=== PATIENT | female | born 1965 | race Caucasian/White ===

== ENCOUNTER 2017-04-07 13:32 | Inpatient (IN) ==
[2017-04-07] MEDS ORDERED: NS 1,000 ML IV ONE ×2 (13:53→15:40)
[2017-04-07] MEDS ORDERED: ONDANSETRON 4 MG/2 ML INJECTION IVP PRN ×2 (13:53→17:29)
[2017-04-07] MEDS ORDERED: MORPHINE SULFATE 2mg INJECTION IVP ONE ×2 (13:53→14:22)
[2017-04-07] MEDS: SALINE FLUSH 10ml SYRINGE IVF PRN ×3 (13:55→21:23)
--- NOTE | 2017-04-07 13:58 | Emergency Department Report ---
Chest Pain HPI - General Chief Complaint: Chest Pain Stated Complaint: cp,abdpain,backpain Time Seen by Provider: 04/07/17 13:52 Source: patient Mode of arrival: ambulatory Limitations: no limitations - History of Present Illness HPI narrative: Mrs Vail is a pleasant 51-year-old female who presents to the emergency room with fairly severe chest pain, abdominal pain that radiates into the back. She reports that her pain started last evening while sitting and drinking a beer at home. Pain was in the chest only. At that time. However, this morning, pain is more in the abdomen. She is now having nausea and vomited 1. Pain radiates into the back. She is noted to be diaphoretic, tachycardic in the 120s with elevated blood pressure on arrival. MD complaint: chest pain Occurred At: home Onset (ago): hour(s) Duration: constant Onset: during rest Severity: severe Severity scale (1-10): 9 Quality: aching Pain radiation: none Relieving factors: nothing Exacerbating factors: nothing Associated symptoms: nausea, vomiting, diaphoresis Treatments prior to arrival chest pain: none - Related Data On Oral Contraceptives: No Home Medications Medication Instructions Recorded Confirmed Levothyroxine Sodium [Synthroid] 75 mcg PO DAILY #0 11/22/09 04/07/17 Ibuprofen 400 mg PO PRN PRN 04/07/17 04/07/17 Allergies Allergy/AdvReac Type Severity Reaction Status Date / Time tetracycline AdvReac Mild NAUSEA Verified 11/22/09 15:52 doxycycline AdvReac Unknown Verified 11/22/09 15:52 Review of Systems All systems: reviewed and negative except as stated Cardiovascular: Reports: chest pain Gastrointestinal: Reports: as per HPI, abdominal pain, nausea, vomiting PFS Patient Stated Medical History Cerebrovascular Accident No Migraine Yes Angina No Cardiac Arrhythmia No Congestive Heart Failure No Myocardial Infarction No Peripheral Vascular Disease No Other Respiratory Yes: hx pleursey Diabetes Mellitus Type 1 No Diabetes Mellitus Type 2 No Gastroesophageal Reflux Yes Disease Other Musculoskeletal Yes: jaw sx Recreational Drug Use No Hypothyroidism Surgical History: Tonsillectomy. Jaw surgery Family History Updates: Diabetes - Social History Smoking status: Current every day smoker Substance use type: does not use Alcohol intake: current Housing: house Household members: significant other Social history: Primary care provider-formally Dr. Medrano Physical Exam - Limitations Limitations: no limitations - General General appearance: alert, in no apparent distress - Normal Exams: Head:: Normocephalic without trauma Eyes:: Pupils are PERRLA w/ EOMI ENMT:: No facial trauma Neck:: Full range of motion Chest/Respirations:: Clear all haskins Cardiovascular:: Regular rate and rhythm (tachycardic-120), Pulses 2+ all extremities Integumentary:: No rashes Neurological:: Patient is alert Psychiatric:: Patient exhibits, appropriate attention - Cardiovascular Cardiovascular exam: Present: tachycardia - Abdominal Exam Abdominal exam: Present: tenderness Abdominal tenderness: Present: diffuse Course Vital Signs Pulse Rate 108 H 04/07/17 14:20 Respiratory Rate 24 04/07/17 14:20 Blood Pressure 142/98 H 04/07/17 14:20 Pulse Oximetry 100 04/07/17 14:20 Temperature 98.3 F 04/09/17 07:15 Pulse Rate 85 04/09/17 07:15 Respiratory Rate 18 04/09/17 07:15 Blood Pressure 107/68 04/09/17 07:15 Pulse Oximetry 95 04/09/17 07:15 Chest Pain - MDM Narrative Medical decision making narrative: 1530- Re-examination rates pain 9/10. Appears more comfortable. Reviewed labs. Patient states she has been drinking increased alcohol lately. Will give 2nd liter of IV fluid and additional Morphine. 1630- CT results revel Acute Pancreatitis. Spoke with oncall Hospitalist Dr Hinton. Discussed plan for admission with patient. - Differential Diagnosis Likely: unstable angina pectoris, st elevation myocardial infarction, chest pain , biliary colic - Lab Data Result diagrams: 04/09/17 04:47 04/09/17 04:47 Lab Results 04/07/17 04/07/17 04/07/17 Range/Units 14:11 14:11 14:11 WBC 13.5 H (4.5-11.0) T/MM3 RBC 4.75 (4.00-5.20) M/MM3 Hgb 16.9 H (12-16) GM/DL Hct 45.8 (36-46) % MCV 96.4 (80-100) UM3 MCH 35.6 H (26-34) UUG MCHC 36.9 (31-37) GM/DL RDW Std Deviation 41.0 (36.9-50.2) FL Plt Count 217 (130-400) T/MM3 MPV 10.3 (9.4-12.4) UM3 Immature Gran % (Auto) Not performed Neut % (Auto) Not performed Lymph % (Auto) Not performed Casey % (Auto) Not performed Eos % (Auto) Not performed Baso % (Auto) Not performed Neut # (Auto) Not performed Lymph # (Auto) Not performed Casey # (Auto) Not performed Eos # (Auto) Not performed Baso # (Auto) Not performed Abs Immat Gran (auto) Not performed Neutrophils % (Manual) 87.0 H (33-66) % Lymphocytes % (Manual) 10.0 L (23-45) % Monocytes % (Manual) 3.0 (0-9.0) % Neutrophils # (Manual) 11.7 H (1.8-7.7) T/MM3 Lymphocytes # (Manual) 1.4 (1-4.8) T/MM3 Monocytes # (Manual) 0.4 (0-0.8) T/MM3 RBC Morph Comment Normal D-Dimer 497 H (0-230) NG/ML Turbidity < 20 (0-20) Sodium 139 (134-144) MEQ/L Potassium 3.8 (3.6-5) MEQ/L Chloride 104 (98-107) MEQ/L Carbon Dioxide 17 L (22-30) MEQ/L Anion Gap 18 H (5-15) MEQ/L BUN 17.0 (7-17) MG/DL Creatinine 0.7 (0.7-1.2) MG/DL GFR Calculation 89 BUN/Creatinine Ratio 24 (6-26) RATIO Glucose 179 H (65-110) MG/DL Calculated Osmolality 274 (261-280) MOSM/KG Calcium 10.6 H (8.4-10.2) MG/DL Total Bilirubin 1.40 H (0.20-1.30) MG/DL Icterus Index < 2 (0-7) AST 94 H (14-36) U/L ALT 86 H (9-52) U/L Alkaline Phosphatase 142 H (38-126) U/L Troponin I < 0.012 (0-0.12) ng/ml Total Protein 8.7 H (6.3-8.2) G/DL Albumin 4.7 (3.5-5.0) G/DL Globulin 4.0 H (2.4-3.6) G/DL Albumin/Globulin Ratio 1.2 (1.1-2.2) RATIO Triglycerides (35-135) MG/DL Lipase 7045 H (23-300) U/L Specimen Hemolysis < 15 (0-25) // Range/Units 14:11 WBC (4.5-11.0) T/MM3 RBC (4.00-5.20) M/MM3 Hgb (12-16) GM/DL Hct (36-46) % MCV (80-100) UM3 MCH (26-34) UUG MCHC (31-37) GM/DL RDW Std Deviation (36.9-50.2) FL Plt Count (130-400) T/MM3 MPV (9.4-12.4) UM3 Immature Gran % (Auto) Neut % (Auto) Lymph % (Auto) Casey % (Auto) Eos % (Auto) Baso % (Auto) Neut # (Auto) Lymph # (Auto) Casey # (Auto) Eos # (Auto) Baso # (Auto) Abs Immat Gran (auto) Neutrophils % (Manual) (33-66) % Lymphocytes % (Manual) (23-45) % Monocytes % (Manual) (0-9.0) % Neutrophils # (Manual) (1.8-7.7) T/MM3 Lymphocytes # (Manual) (1-4.8) T/MM3 Monocytes # (Manual) (0-0.8) T/MM3 RBC Morph Comment D-Dimer (0-230) NG/ML Turbidity (0-20) Sodium (134-144) MEQ/L Potassium (3.6-5) MEQ/L Chloride (98-107) MEQ/L Carbon Dioxide (22-30) MEQ/L Anion Gap (5-15) MEQ/L BUN (7-17) MG/DL Creatinine (0.7-1.2) MG/DL GFR Calculation BUN/Creatinine Ratio (6-26) RATIO Glucose (65-110) MG/DL Calculated Osmolality (261-280) MOSM/KG Calcium (8.4-10.2) MG/DL Total Bilirubin (0.20-1.30) MG/DL Icterus Index (0-7) AST (14-36) U/L ALT (9-52) U/L Alkaline Phosphatase (38-126) U/L Troponin I (0-0.12) ng/ml Total Protein (6.3-8.2) G/DL Albumin (3.5-5.0) G/DL Globulin (2.4-3.6) G/DL Albumin/Globulin Ratio (1.1-2.2) RATIO Triglycerides 234 H (35-135) MG/DL Lipase (23-300) U/L Specimen Hemolysis (0-25) Disposition Clinical Impression: Acute pancreatitis Qualifiers: Acute pancreatitis complication: unspecified Disposition: To [facility] [place] Acute Care Condition: Stable Time of Disposition: 16:30 - Seen By: midlevel
[2017-04-07] MEDS ORDERED: METOCLOPRAMIDE 10mg/2ml INJECTION IVP ONE (14:22)
[2017-04-07] MEDS ORDERED: IOHEXOL 300mg/ml 100ml INJECTION ONE (15:32)
[2017-04-07] MEDS ORDERED: SALINE FLUSH 10ml SYRINGE ONE (15:32)
[2017-04-07] MEDS ORDERED: MORPHINE SULFATE 4mg INJECTION IVP ONE (15:40)
--- NOTE | 2017-04-07 16:24 | CT Scan Report ---
Indication: abd pain PROCEDURE: CT abdomen pelvis w con: Encounter: Initial Comparison: None Technique: Axial CT images were performed through the abdomen and pelvis after the administration of intravenous contrast. Coronal and sagittal two-dimensional reformats. Automated Exposure Control and Iterative Reconstruction dose reducing techniques were utilized. Contrast: Omnipaque 300 100 mL Findings: Mild atelectasis in the lung bases. The liver is decreased in attenuation relative to the spleen consistent with steatosis. No enhancing liver mass or bile duct dilatation. The gallbladder is normal. The spleen is normal. There is severe inflammation and stranding surrounding the thickened pancreas. No areas of nonenhancing pancreatic tissue seen. There is inflammation and a small amount of fluid tracking along the retroperitoneum. The SMA and SMV are patent as is the portal vein. The adrenal glands and kidneys are normal. No abdominal or pelvic lymphadenopathy. Bladder is normal. Uterus is unremarkable. No evidence of a bowel obstruction. The appendix is normal. Bone windows show no acute findings. Impression: 1. Severe acute pancreatitis. 2. Hepatic steatosis. .
[2017-04-07 17:25] VITALS: BMI 28.5
[2017-04-07] MEDS ORDERED: HYDROMORPHONE 2 MG/ML INJECTION IVP PRN (17:29)
[2017-04-07] MEDS ORDERED: NICOTINE 21 MG PATCH TD PRN (17:35)
--- NOTE | 2017-04-07 17:44 | History & Physical Report ---
History of Present Illness Date: 04/07/17 HPI: Patient is a 51 year old female who presents with pancreatitis. Patient reports that substernal pain started last night. It was mild at the time so she took Ibuprofen. The pain woke her up during the night and progressively increased. Pain was severe and was making her vomit. The pain was epigastric and radiated to her back. She reports a history of alcoholism years ago with hard alcohol and beer. Patient reports that she has been drinking beer daily for the past couple of weeks. She only drinks beer and it was a few a night until last night. She was celebrating her new job and had 6 beers last night. She reports never having pancreatitis prior. She has had some abdominal pain that was similar but much less severe in the past but is unsure if it was related to alcohol intake. She does smoke daily. Review of Systems - Constitutional Constitutional: Absent: fever(s), headache(s) - EENMT Eyes: Absent: loss of vision, pain Balance: Absent: vertigo, ataxia Nose: Absent: nosebleeds Mouth/Throat: Absent: pain, sore throat - Cardiovascular Cardiovascular: Absent: palpitations, syncope, dyspnea on exertion, edema Vascular: Absent: pedal edema - Respiratory Respiratory: Absent: cough, dyspnea, dyspnea on exertion - Gastrointestinal Gastrointestinal: Present: as per HPI, abdominal pain, nausea, vomiting. Absent : change in bowel habits, change in stool character, early satiety - Musculoskeletal Musculoskeletal: Absent: abnormal gait, muscle weakness - Integumentary/Breasts Integumentary: Absent: erythema - Neurological Neurological: Absent: abnormal movements, abnormal speech, frequent falls, headache(s), lack of coordination - Hematologic/Lymphatic Hematologic/Lymphatic: Absent: easy bleeding, easy bruising Past Medical History Patient Stated Medical History Cerebrovascular Accident No Migraine Yes Other HEENT Yes Angina No Cardiac Arrhythmia No Congestive Heart Failure No Myocardial Infarction No Other Respiratory Yes: hx pleursey Diabetes Mellitus Type 1 No Diabetes Mellitus Type 2 No Gastroesophageal Reflux Yes Disease Other Musculoskeletal Yes: jaw sx Surgical History: Tonsillectomy. Jaw surgery Family History Updates: Diabetes. Mother was alcoholic - Social History Smoking status: Current every day smoker Time spent discussing smoking cessation with patient: more than 10 minutes Substance use type: does not use Alcohol intake: current Last drink: days (ago) (1) Housing: house Household members: significant other Current occupational status: employed Current occupation: [employer] Medications Home Medications Medication Instructions Recorded Confirmed Type Levothyroxine Sodium [Synthroid] 75 mcg PO DAILY #0 11/22/09 04/07/17 History Ibuprofen 400 mg PO PRN PRN 04/07/17 04/07/17 History Allergies Allergy/AdvReac Type Severity Reaction Status Date / Time tetracycline AdvReac Mild NAUSEA Verified 11/22/09 15:52 doxycycline AdvReac Unknown Verified 11/22/09 15:52 Exam Vital Signs: Temperature 96.9 F 04/07/17 17:05 Pulse Rate 121 H 04/07/17 17:05 Respiratory Rate 18 04/07/17 17:05 Blood Pressure 165/111 H 04/07/17 17:05 Pulse Oximetry 99 04/07/17 17:05 Height/Weight/BMI: Height 6 ft Weight 95.3 kg Body Mass Index 28.5 - Constitutional Present: mild distress, well nourished, well developed - Routine HEENT Exam Head: Present: normocephalic, atraumatic Eye: Present: EOMI, conjunctivae pink ENT: Present: mucous membranes moist, nares patent - Routine Neck Exam Present: supple, full ROM. Absent: JVD - Routine Respiratory Exam Present: CTA bilaterally. Absent: respiratory distress - Routine Cardiovascular Exam Present: RRR, no murmur - Routine Abdominal Exam Present: soft, normoactive bowel sounds, tenderness (epigastric, LUQ ) - Routine Extremities Exam Present: no edema, pulses intact, normal capillary refill. Absent: cyanosis, clubbing - Routine Skin Exam Present: intact, dry, warm. Absent: erythema - Routine Neurological Exam Present: alert, oriented X3, CN II-XII intact - Routine Psychiatric Exam Present: normal affect, good insight, good judgment Results - Labs CBC & Chem 7: 04/07/17 14:11 04/07/17 14:11 - Imaging and Cardiology CT scan - abdomen Additional comments: Date of Exam: 04/07/17 Ordering Provider: Ivy Augustin APRN Type of Exam(s): CT abdomen pelvis w con Reason for Exam(s): abd pain Indication: abd pain PROCEDURE: CT abdomen pelvis w con: Encounter: Initial Comparison: None Technique: Axial CT images were performed through the abdomen and pelvis after the administration of intravenous contrast. Coronal and sagittal two-dimensional reformats. Automated Exposure Control and Iterative Reconstruction dose reducing techniques were utilized. Contrast: Omnipaque 300 100 mL Findings: Mild atelectasis in the lung bases. The liver is decreased in attenuation relative to the spleen consistent with steatosis. No enhancing liver mass or bile duct dilatation. The gallbladder is normal. The spleen is normal. There is severe inflammation and stranding surrounding the thickened pancreas. No areas of nonenhancing pancreatic tissue seen. There is inflammation and a small amount of fluid tracking along the retroperitoneum. The SMA and SMV are patent as is the portal vein. The adrenal glands and kidneys are normal. No abdominal or pelvic lymphadenopathy. Bladder is normal. Uterus is unremarkable. No evidence of a bowel obstruction. The appendix is normal. Bone windows show no acute findings. Impression: 1. Severe acute pancreatitis. 2. Hepatic steatosis. Assessment and Plan Assessment and Plan: Assessment Pancreatitis 2/2 ETOH use-denies any medications, triglycerides not significantly elevated, no family history of pancreatitis, no personal history of pancreatitis - Hct 45, No elevation of Cr, glucose less than 16k, age less than 55 - Multiple scoring tools for pancreatitis although none proven to be predictive/ superior to others. Labs not showing severe disease - CT shows 'severe' pancreatitis High anion gap metabolic acidosis Abdominal Pain Elevated D Dimer HTN-without previous diagnosis Hypothyroidism Alcohol Abuse-willing to quit Tobacco abuse Plan Aggressive fluid hydration, frequent monitoring of fluid status Repeat labs in am, no benefit to trending lipase. Will monitor BUN and Hct PRN pain medications, will need FAMILY PRACTICE PHYSICIAN ASSISTANT if unable to control with intermittent IV medications Bowel rest for now with sips and chips for comfort Continue home medication for thyroid Counseled on alcohol and tobacco cessation-will to quit drinking Nicotine patch as needed GI ppx: PPI DVT ppx: lovenox Code status: Full code DVT Prophylaxis: Lovenox GI Prophylaxis: Protonix Resuscitation Status: Full Code - Physician Narrative Narrative: Date: 04/07/17 Time: 1739 Hospital Course Summary Disclaimer: The visit summary below is not to be considered part of the above Progress Note.
[2017-04-07] MEDS ORDERED: NICOTINE PATCH REMOVAL TD PRN (18:00)
[2017-04-07] MEDS: PANTOPRAZOLE 40 MG INJECTION IVP SCH (18:09)
[2017-04-07] MEDS: LR 1,000 ML IV SCH ×2 (18:09→22:36)
[2017-04-07] MEDS: ENOXAPARIN 30 MG/0.3 ML INJECTION SQ SCH (18:09)
[2017-04-07] MEDS: MORPHINE SULFATE 2mg INJECTION IVP PRN ×2 (18:09→20:26)
[2017-04-07] MEDS: MORPHINE SULFATE 4mg INJECTION IVP PRN ×2 (21:22→23:50)
[2017-04-08] MEDS: MORPHINE SULFATE 4mg INJECTION IVP PRN ×7 (02:40→21:08)
[2017-04-08] MEDS: LR 1,000 ML IV SCH ×6 (02:43→20:40)
[2017-04-08] MEDS: PANTOPRAZOLE 40 MG INJECTION IVP SCH (08:22)
[2017-04-08] MEDS: ENOXAPARIN 30 MG/0.3 ML INJECTION SQ SCH (08:23)
[2017-04-08] MEDS: SALINE FLUSH 10ml SYRINGE IVF PRN (08:23)
--- NOTE | 2017-04-08 16:22 | Progress Note ---
- Date 04/08/17 Subjective: Patient is seen lying in bed. She reports her pain is currently 2/10, but if she moves, as 7/10. She's had no vomiting since yesterday morning. Last bowel movement was yesterday prior to coming in. No chest pain or shortness of breath. Objective Vital signs: Temperature 97.0 F 04/08/17 07:32 Pulse Rate 135 H 04/08/17 14:21 Respiratory Rate 16 04/08/17 14:21 Blood Pressure 107/69 04/08/17 14:21 Pulse Oximetry 90 04/08/17 14:21 Height/Weight/BMI: Height 1.83 m Weight 99.7 kg Body Mass Index 28.5 - Constitutional Present: no acute distress, well nourished, well developed - Routine HEENT Exam Head: Present: normocephalic, atraumatic - Routine Respiratory Exam Present: CTA bilaterally. Absent: wheezes - Routine Cardiovascular Exam Present: RRR, no murmur - Routine Abdominal Exam Present: soft, tenderness (moderate, diffuse), non distended, distended. Absent : normoactive bowel sounds (hypoactive bowel sounds) - Routine Extremities Exam Present: no edema, normal capillary refill - Routine Skin Exam Present: dry, warm - Routine Neurological Exam Present: alert, oriented X3 - Routine Lymphatic Exam Lymphatic: Absent: adenopathy - Routine Psychiatric Exam Present: normal affect, cooperative Results - Labs CBC & Chem 7: 04/08/17 05:41 04/08/17 05:41 Assessment and Plan Assessment and Plan: Assessment Pancreatitis 2/2 ETOH use-denies any medications, triglycerides not significantly elevated, no family history of pancreatitis, no personal history of pancreatitis - Hct 45, No elevation of Cr, glucose less than 16k, age less than 55 - Multiple scoring tools for pancreatitis although none proven to be predictive/ superior to others. Labs not showing severe disease - CT shows 'severe' pancreatitis High anion gap metabolic acidosis -resolved Abdominal Pain Elevated D Dimer HTN-without previous diagnosis Hypothyroidism Alcohol Abuse-willing to quit Tobacco abuse Plan Continue IVF's and advance diet to clear liquids. LFTs have improved. CBC, CMP in am. Encourage IS for pulmonary toilet. IV ativan PRN anxiety sxs Doesn't feel the morphine is significantly helpful for pain. Will increase dosing range up to 4-6mg. DVT Prophylaxis: SCD's, Lovenox GI Prophylaxis: Protonix Resuscitation Status: Full Code - Physician Narrative Physician: Amanda Dobson MD Narrative: Date: 04/08/17 Time: 1700 I have independently evaluated and examined this patient. I reviewed the chart, the patient's history, and the [facility] [employer] [employer]/PA's documented findings as above. We discussed and formulated the assessment and plan as above with additions as below: Tomeka reports ongoing abdominal pain although less intense than yesterday; pain increases with deep inspiration or any movement. She denies back pain today and has not vomited although there is residual nausea. She is thirsty but has no interest in food. She denied fever. Respirations are nonlabored but she clearly splints; diffuse abdominal tenderness with guarding, bowel sounds are present. Incentive spirometry initiated, clear liquids ordered-patient advised to limit liquids until tolerance demonstrated. Transaminases have improved, calcium down modestly compared to yesterday although remains within normal limits-reassess tomorrow. Continue medical management of pancreatitis. Continues to require IV narcotics and antiemetics for management. CT abdomen/pelvis reviewed by myself demonstrating marked inflammation around the pancreas without phlegmon, minimal pericholecystic fluid, no gallstones, no ductal dilatation. Hospital Course Summary Disclaimer: The visit summary below is not to be considered part of the above Progress Note. Hospital Course: 04/07 Aggressive fluid hydration, frequent monitoring of fluid status Repeat labs in am, no benefit to trending lipase. Will monitor BUN and Hct PRN pain medications, will need RN LACTATION if unable to control with intermittent IV medications Bowel rest for now with sips and chips for comfort Continue home medication for thyroid Counseled on alcohol and tobacco cessation-will to quit drinking Nicotine patch as needed GI ppx: PPI DVT ppx: lovenox Code status: Full code 04/08 Continue IVF's and advance diet to clear liquids. LFTs have improved. CBC, CMP in am. Encourage IS for pulmonary toilet. IV ativan PRN anxiety sxs Doesn't feel the morphine is significantly helpful for pain. Will increase dosing range up to 4-6mg.
[2017-04-09] MEDS: MORPHINE SULFATE 4mg INJECTION IVP PRN ×7 (00:01→21:02)
[2017-04-09] MEDS: LR 1,000 ML IV SCH ×3 (00:41→08:50)
[2017-04-09] MEDS: SALINE FLUSH 10ml SYRINGE IVF PRN ×3 (02:36→21:01)
[2017-04-09] MEDS ORDERED: LEVOTHYROXINE 75 MCG TABLET PO ONE (06:45)
[2017-04-09] MEDS: ENOXAPARIN 40 MG/0.4 ML INJECTION SQ SCH (08:50)
[2017-04-09] MEDS: PANTOPRAZOLE 40 MG INJECTION IVP SCH (08:50)
[2017-04-09] MEDS: NS with KCL 20 mEq 1,000 ML IV SCH ×2 (11:06→21:01)
--- NOTE | 2017-04-09 12:05 | Progress Note ---
- Date 04/09/17 Subjective: Tomeka is seen today in follow up. He reports that she is significantly tired as she has got minimal sleep the last 2 nights due to numerous interruptions and pain. He states that overall her pain continues to improve. However, she continues to require morphine routinely. Was able to take and some broth and has tolerated this okay. Continues to have and intermittent nausea. Denies chest pain or shortness of breath. No difficulty with urination, no bowel movement since admission.. States that she has been very emotional and crying frequently as she thinks this is due to her lack of sleep. Objective Vital signs: Temperature 98.3 F 04/09/17 07:15 Pulse Rate 85 04/09/17 07:15 Respiratory Rate 14 04/09/17 10:19 Blood Pressure 107/68 04/09/17 07:15 Pulse Oximetry 95 04/09/17 10:19 Height/Weight/BMI: Height 1.83 m Weight 102.5 kg Body Mass Index 28.5 - Constitutional Present: mild distress, well nourished, well developed - Routine HEENT Exam Eye: Present: EOMI ENT: Present: mucous membranes moist, dentition normal - Routine Respiratory Exam Present: CTA bilaterally. Absent: wheezes - Routine Cardiovascular Exam Present: RRR, S1, S2. Absent: murmur - Routine Abdominal Exam Present: soft, tenderness (generalized), non distended. Absent: normoactive bowel sounds (hypoactive) - Routine Extremities Exam Present: normal capillary refill - Routine Skin Exam Present: dry, warm - Routine Neurological Exam Present: alert, oriented X3, CN II-XII intact - Routine Lymphatic Exam Lymphatic: Absent: adenopathy - Routine Psychiatric Exam Present: normal affect Results - Labs CBC & Chem 7: 04/09/17 04:47 04/09/17 04:47 Assessment and Plan (1) Acute pancreatitis Current visit: Yes Status: Acute Assessment and Plan: Assessment Pancreatitis 2/2 ETOH use-denies any medications, triglycerides not significantly elevated, no family history of pancreatitis, no personal history of pancreatitis - Hct 45, No elevation of Cr, glucose less than 16k, age less than 55 - Multiple scoring tools for pancreatitis although none proven to be predictive/ superior to others. Labs not showing severe disease - CT shows 'severe' pancreatitis High anion gap metabolic acidosis -resolved Abdominal Pain Elevated D Dimer HTN-without previous diagnosis Hypothyroidism Alcohol Abuse-willing to quit Tobacco abuse Plan Continue IV Fluids, She is tolerating PO cranberry juice and broth. Does continue to require IV morphine routinely for pain control. She does Feel like she has increased anxiety and did receive Ativan yesterday. Requesting something to help sleep. She has used trazodone in the past, however, states it does not work. We will try Dain fry Discussed with nursing staff minimizing interruptions today so patient can nap. Sign placed on her door Lovenox subcutaneous daily for DVT prophylaxis Laboratory studies reviewed, mild hyponatremia and hypokalemia. Continue to follow tomorrow Discussed case with attending, Dr Dobson DVT Prophylaxis: Lovenox GI Prophylaxis: Protonix Resuscitation Status: Full Code - Physician Narrative Physician: Amanda Dobson MD Narrative: Date: 04/09/17 Time: 1644 I have independently evaluated and examined this patient. I reviewed the chart, the patient's history, and the BOAT LOADER/PA's documented findings as above. We discussed and formulated the assessment and plan as above with additions as below: Ivy reports she didn't tolerate clear liquids well yesterday (although nursing reports 600 mL taken and orally and over 800 mL thus far today); she asked about advancing to full liquids and whether she could have crackers or toast to help settle her stomach. She continues to have some abdominal pain which is now more localized to the left upper quadrant but denies dyspnea except ongoing discomfort with deep inspiration. She complains of urinating all the time without dysuria. She's been afebrile. Abdomen is soft and she tolerates palpation much better than she did yesterday, there is localized tenderness in the left upper quadrant without guarding; bowel sounds are active Ongoing splinting with inspiration but anterior lung haskins are clear. Rate of IV fluids decreased and potassium added-electrolytes being reevaluated now. Frequency of IV morphine use decreasing; advance diet to full liquids and add Percocet to enhance pain control. Check LDH with a.m. labs; liver enzymes have normalized. Hospital Course Summary Disclaimer: The visit summary below is not to be considered part of the above Progress Note. Hospital Course: 04/07 Aggressive fluid hydration, frequent monitoring of fluid status Repeat labs in am, no benefit to trending lipase. Will monitor BUN and Hct PRN pain medications, will need INSURANCE CLAIMS EXAMINER if unable to control with intermittent IV medications Bowel rest for now with sips and chips for comfort Continue home medication for thyroid Counseled on alcohol and tobacco cessation-will to quit drinking Nicotine patch as needed GI ppx: PPI DVT ppx: lovenox Code status: Full code 04/08 Continue IVF's and advance diet to clear liquids. LFTs have improved. CBC, CMP in am. Encourage IS for pulmonary toilet. IV ativan PRN anxiety sxs Doesn't feel the morphine is significantly helpful for pain. Will increase dosing range up to 4-6mg. 04/09 Continue IV Fluids, She is tolerating PO cranberry juice and broth. Does continue to require IV morphine 6mg routinely for pain control. She does Feel like she has increased anxiety and did receive Ativan yesterday. Requesting something to help sleep. She has used trazodone in the past, however, states it does not work. We will try Dain fry Discussed with nursing staff minimizing interruptions today so patient can nap. Sign placed on her door Lovenox subcutaneous daily for DVT prophylaxis Laboratory studies reviewed, mild hyponatremia and hypokalemia. Continue to follow tomorrow Diet advance to full liquids, Percocet added as oral option for pain control.
[2017-04-09] MEDS: OXYCODONE/APAP 7.5 MG/325 MG TABLET PO PRN ×2 (17:55→23:04)
[2017-04-09] MEDS: ZOLPIDEM 10 MG TABLET PO SCH (20:53)
[2017-04-10] MEDS: SALINE FLUSH 10ml SYRINGE IVF PRN ×4 (03:10→22:21)
[2017-04-10] MEDS: MORPHINE SULFATE 4mg INJECTION IVP PRN ×4 (03:11→22:21)
[2017-04-10] MEDS: OXYCODONE/APAP 7.5 MG/325 MG TABLET PO PRN ×5 (04:32→23:42)
[2017-04-10] MEDS: LEVOTHYROXINE 75 MCG TABLET PO SCH (06:19)
[2017-04-10] MEDS ORDERED: LEVOTHYROXINE 75 MCG TABLET PO SCH (06:30)
[2017-04-10] MEDS: NS with KCL 20 mEq 1,000 ML IV SCH ×3 (06:53→16:10)
[2017-04-10] MEDS: PANTOPRAZOLE 40 MG INJECTION IVP SCH (08:25)
[2017-04-10] MEDS: ENOXAPARIN 40 MG/0.4 ML INJECTION SQ SCH (08:25)
[2017-04-10] MEDS: MAGNESIUM SULFATE 1gm PREMIX 1 GM/100 ML BAG IV SCH ×2 (10:37→11:36)
[2017-04-10] MEDS: LIDOCAINE 1% 2ml INJ 10 MG, POTASSIUM CHLORIDE INJ 10 MEQ in NS 100 ML IV SCH ×4 (12:44→16:05)
--- NOTE | 2017-04-10 14:30 | Progress Note ---
- Date 04/10/17 Subjective: Patient seen sitting in her bed. She reports she is very tired. She had Ambien last night, but still didn't sleep through the entire night. SHe is tolerating p.o. Has had maltomeal and tomato soup. Slight increase in pain after eating but resolves quickly. She is still requiring morphine IV and taking Percocet by mouth. Nurses have asked to increase the frequency of the Percocet to decrease use of IV morphine. Patient is not vomiting. Nausea is not an issue. Still has pain and bloating. Objective Vital signs: Temperature 96.5 F L 04/10/17 07:16 Pulse Rate 85 04/10/17 07:16 Respiratory Rate 16 04/10/17 09:30 Blood Pressure 110/72 04/10/17 07:16 Pulse Oximetry 96 04/10/17 09:30 Height/Weight/BMI: Height 1.83 m Weight 105 kg Body Mass Index 28.5 - Constitutional Present: no acute distress, well nourished, well developed - Routine HEENT Exam Head: Present: normocephalic, atraumatic - Routine Respiratory Exam Present: decreased breath sounds (b/l bases), CTA bilaterally. Absent: wheezes - Routine Cardiovascular Exam Present: RRR, no murmur - Routine Abdominal Exam Present: soft, tenderness (LUQ and epigastric) - Routine Extremities Exam Present: no edema, normal capillary refill - Routine Skin Exam Present: dry, warm - Routine Neurological Exam Present: alert, oriented X3 - Routine Lymphatic Exam Lymphatic: Absent: adenopathy - Routine Psychiatric Exam Present: normal affect, cooperative Results - Labs CBC & Chem 7: 04/10/17 04:41 04/10/17 04:41 Labs: Laboratory Tests 04/10/17 04:41 Phosphorus 2.9 Magnesium 1.5 L Lactate Dehydrogenase 390 Assessment and Plan (1) Acute pancreatitis Current visit: Yes Status: Acute Assessment and Plan: Assessment Pancreatitis 2/2 ETOH use-denies any medications, triglycerides not significantly elevated, no family history of pancreatitis, no personal history of pancreatitis - Hct 45, No elevation of Cr, glucose less than 16k, age less than 55 - Multiple scoring tools for pancreatitis although none proven to be predictive/ superior to others. Labs not showing severe disease - CT shows 'severe' pancreatitis High anion gap metabolic acidosis -resolved Hypokalemia-not POA Hypomagnesemia-not POA Abdominal Pain - improving Elevated D Dimer HTN-without previous diagnosis Hypothyroidism Alcohol Abuse-willing to quit Tobacco abuse Plan Slowly improving. Advance to regular diet in the morning. Decrease IV Fluids to 50ml/hr. DC in morning if she continues to take p.o. well. Change Percocet 2 every 4 hours -try to avoid IV pain medication. Change IV Protonix to po. Replaced potassium and magnesium. Will follow. BMP and Mg in am. Hopefully will be able to DC home tomorrow if pain controlled on p.o. meds. DVT Prophylaxis: SCD's, Lovenox GI Prophylaxis: Protonix Resuscitation Status: Full Code - Physician Narrative Physician: Amanda Dobson MD Narrative: Date: 04/10/17 Time: 2209 I have independently evaluated and examined this patient. I reviewed the chart, the patient's history, and the MILKING MACHINE MECHANIC/PA's documented findings as above. We discussed and formulated the assessment and plan as above with additions as below: Ongoing abdominal pain although tolerating limited full liquids; IV narcotics being utilized less often than they were previously. Weight up 10 kg from admission. Alert, some anxiety evident Abdomen distended, soft with minimal tenderness on palpation; bowel sounds present although somewhat diminished. Patient advised that she will develop significant third spacing of fluid both intra-abdominally and diffusely in conjunction with pancreatitis. Fluids decreased earlier today as noted but blood pressure marginal at times I do not believe diuresis is an option. Patient again advised that inflammation will resolve spontaneously and course is unpredictable. She denies worsening of abdominal pain with oral intake thus far. No fevers or leukocytosis; calcium down slightly as is albumin. Ambien decreased to 5 mg from 10 mg for nighttime use. Hospital Course Summary Disclaimer: The visit summary below is not to be considered part of the above Progress Note. Hospital Course: 04/07 Aggressive fluid hydration, frequent monitoring of fluid status Repeat labs in am, no benefit to trending lipase. Will monitor BUN and Hct PRN pain medications, will need SAP FICO ARCHITECT if unable to control with intermittent IV medications Bowel rest for now with sips and chips for comfort Continue home medication for thyroid Counseled on alcohol and tobacco cessation-will to quit drinking Nicotine patch as needed GI ppx: PPI DVT ppx: lovenox Code status: Full code 04/08 Continue IVF's and advance diet to clear liquids. LFTs have improved. CBC, CMP in am. Encourage IS for pulmonary toilet. IV ativan PRN anxiety sxs Doesn't feel the morphine is significantly helpful for pain. Will increase dosing range up to 4-6mg. 04/09 Continue IV Fluids, She is tolerating PO cranberry juice and broth. Does continue to require IV morphine 6mg routinely for pain control. She does Feel like she has increased anxiety and did receive Ativan yesterday. Requesting something to help sleep. She has used trazodone in the past, however, states it does not work. We will try Dain fry Discussed with nursing staff minimizing interruptions today so patient can nap. Sign placed on her door Lovenox subcutaneous daily for DVT prophylaxis Laboratory studies reviewed, mild hyponatremia and hypokalemia. Continue to follow tomorrow Diet advance to full liquids, Percocet added as oral option for pain control. 04/10 Slowly improving. Advance to regular diet in the morning. Decrease IV Fluids to 50ml/hr. DC in morning if she continues to take p.o. well. Change Percocet 2 every 4 hours -try to avoid IV pain medication. Replaced potassium and magnesium. Will follow. BMP and Mg in am.
[2017-04-10] MEDS ORDERED: PANTOPRAZOLE 20 MG TABLET PO SCH (18:15)
[2017-04-10] MEDS: ZOLPIDEM 10 MG TABLET PO SCH (21:19)
[2017-04-10] MEDS ORDERED: ZOLPIDEM 5 MG TABLET PO SCH (22:12)
[2017-04-11] MEDS ORDERED: PANTOPRAZOLE 40 MG TABLET PO SCH (06:30)
[2017-04-11] MEDS: OXYCODONE/APAP 7.5 MG/325 MG TABLET PO PRN ×2 (06:30→10:18)
[2017-04-11] MEDS: LEVOTHYROXINE 75 MCG TABLET PO SCH (06:31)
[2017-04-11] MEDS: NS with KCL 20 mEq 1,000 ML IV SCH (06:32)
[2017-04-11 07:41] VITALS: BP 127/81; PULSE 78; RESP 18; TEMP 97.5; O2SAT 96
[2017-04-11] MEDS: ENOXAPARIN 40 MG/0.4 ML INJECTION SQ SCH (08:16)
--- NOTE | 2017-04-11 10:04 | Discharge Summary ---
Discharge Information Date of admission: 04/07/17 16:34 Anticipated date of discharge: 04/11/17 Attending Physician: Carlito Sutton IV, MD Consults: 04/11/17 07:24 Case Management Consult [CONS] Routine Reason For Exam: SW CONSULT- ETOH - Discharge Diagnosis (1) Acute pancreatitis Status: Acute Pancreatitis 2/2 ETOH use-denies any medications, triglycerides not significantly elevated, no family history of pancreatitis, no personal history of pancreatitis - Hct 45, No elevation of Cr, glucose less than 16k, age less than 55 - Multiple scoring tools for pancreatitis although none proven to be predictive/ superior to others. Labs not showing severe disease - CT shows 'severe' pancreatitis High anion gap metabolic acidosis -resolved Hypokalemia-not POA Hypomagnesemia-not POA Abdominal Pain - improving Elevated D Dimer HTN-without previous diagnosis Hypothyroidism Alcohol Abuse-willing to quit Tobacco abuse - Laboratory Labs: 04/11/17 05:04 04/11/17 05:04 Laboratory Tests 04/07/17 04/07/17 14:11 14:11 Troponin I < 0.012 Triglycerides 234 H Lipase 7045 H Liver 04/07/17 04/09/17 14:11 04:47 AST 94 H 25 ALT 86 H 38 Alkaline Phosphatase 142 H 47 D Dismissal CBC 04/11/17 05:04 WBC 7.8 RBC 3.10 L Hgb 10.5 L D Hct 32.0 L D MCV 103.2 H MCH 33.9 Plt Count 157 Hgb trends 04/07/17 04/08/17 04/09/17 14:11 05:41 04:47 Hgb 16.9 H 16.7 H 13.0 D 04/10/17 04:41 Hgb 12.1 - Radiology Radiology: Date of Exam: 04/07/17 Indication: abd pain PROCEDURE: CT abdomen pelvis w con: Findings: Mild atelectasis in the lung bases. The liver is decreased in attenuation relative to the spleen consistent with steatosis. No enhancing liver mass or bile duct dilatation. The gallbladder is normal. The spleen is normal. There is severe inflammation and stranding surrounding the thickened pancreas. No areas of nonenhancing pancreatic tissue seen. There is inflammation and a small amount of fluid tracking along the retroperitoneum. The SMA and SMV are patent as is the portal vein. The adrenal glands and kidneys are normal. No abdominal or pelvic lymphadenopathy. Bladder is normal. Uterus is unremarkable. No evidence of a bowel obstruction. The appendix is normal. Bone windows show no acute findings. Impression: 1. Severe acute pancreatitis. 2. Hepatic steatosis. History of Present Illness HPI: Patient is a 51 year old female who presents with pancreatitis. Patient reports that substernal pain started last night. It was mild at the time so she took Ibuprofen. The pain woke her up during the night and progressively increased. Pain was severe and was making her vomit. The pain was epigastric and radiated to her back. She reports a history of alcoholism years ago with hard alcohol and beer. Patient reports that she has been drinking beer daily for the past couple of weeks. She only drinks beer and it was a few a night until last night. She was celebrating her new job and had 6 beers last night. She reports never having pancreatitis prior. She has had some abdominal pain that was similar but much less severe in the past but is unsure if it was related to alcohol intake. She does smoke daily. Objective Vital signs: Temperature 97.5 F 04/11/17 07:40 Pulse Rate 78 04/11/17 07:40 Respiratory Rate 18 04/11/17 07:40 Blood Pressure 127/81 04/11/17 07:40 Pulse Oximetry 96 04/11/17 07:40 Height/Weight/BMI: Height 1.83 m Weight 106.9 kg Body Mass Index 28.5 - Constitutional Present: no acute distress, well nourished, well developed - Routine HEENT Exam Head: Present: normocephalic, atraumatic - Routine Respiratory Exam Present: decreased breath sounds, CTA bilaterally. Absent: wheezes - Routine Cardiovascular Exam Present: RRR, no murmur - Routine Abdominal Exam Present: soft, tenderness (epigastric and LUQ), non distended - Routine Extremities Exam Present: no edema, normal capillary refill - Routine Skin Exam Present: dry, warm - Routine Neurological Exam Present: alert, oriented X3 - Routine Lymphatic Exam Lymphatic: Absent: adenopathy - Routine Psychiatric Exam Present: normal affect, cooperative Hospital Course This is a general summary of the patient's hospital course. For more details refer to the complete medical record. Hospital course: 04/07 Aggressive fluid hydration, frequent monitoring of fluid status Repeat labs in am, no benefit to trending lipase. Will monitor BUN and Hct PRN pain medications, will need PORTAL ADMINISTRATOR if unable to control with intermittent IV medications Bowel rest for now with sips and chips for comfort Continue home medication for thyroid Counseled on alcohol and tobacco cessation-will to quit drinking Nicotine patch as needed GI ppx: PPI DVT ppx: lovenox Code status: Full code 04/08 Continue IVF's and advance diet to clear liquids. LFTs have improved. CBC, CMP in am. Encourage IS for pulmonary toilet. IV ativan PRN anxiety sxs Doesn't feel the morphine is significantly helpful for pain. Will increase dosing range up to 4-6mg. 04/09 Continue IV Fluids, She is tolerating PO cranberry juice and broth. Does continue to require IV morphine 6mg routinely for pain control. She does Feel like she has increased anxiety and did receive Ativan yesterday. Requesting something to help sleep. She has used trazodone in the past, however, states it does not work. We will try Dain fry Discussed with nursing staff minimizing interruptions today so patient can nap. Sign placed on her door Lovenox subcutaneous daily for DVT prophylaxis Laboratory studies reviewed, mild hyponatremia and hypokalemia. Continue to follow tomorrow Diet advance to full liquids, Percocet added as oral option for pain control. 04/10 Slowly improving. Advance to regular diet in the morning. Decrease IV Fluids to 50ml/hr. DC in morning if she continues to take p.o. well. Change Percocet 2 every 4 hours -try to avoid IV pain medication. Replaced potassium and magnesium. Will follow. BMP and Mg in am. 04/11 Labs ok. No n/v. Pain slowly improving. DC IV morphine and IV fluids. DC today with f-u appt with Reema Harrison later this week. Narc Rx to get her by until f-u appt. No work until f-u. Time spent with patient: discharge greater than 30 minutes Resuscitation Status: Full Code Discharge Plan - Discharge Disposition Discharge Date: 04/11/17 Disposition: Discharged Home, Self-Care *Condition: Stable Reason For Visit (Visit label in EMR): Pancreatitis - Discharge Medications *Discharge Medications: New Oxycodone/Apap 7.5/325 [Percocet 7.5/325] 1 - 2 tab PO Q4H PRN #15 tab PRN Reason: Pain Continue Levothyroxine Sodium [Synthroid] 75 mcg PO DAILY #0 Ibuprofen 400 mg PO PRN PRN PRN Reason: Pain - Discharge Packet/Instructions *Diet: as tolerated *Activity: as tolerated *Pain Management/Treatment: Percocet (oxycodone/APAP) 1 pill up to 4x a day as needed for pain. Heating pad if needed. *Wound Care: n/a Additional Instructions: DO not continue to drink alcohol. If you do drink alcohol, do so in moderation or you are at risk of recurrence of pancreatitis. You should have follow up bloodwork done with Sharmaine at your appointment. *Expected Signs/Symptoms: Slow improvement in appetite and pain *Notify Physician if: your pain worsens or you have intractable nausea and vomiting *During Business Hours Contact: [facility] *After Business Hours Contact: [facility] and have your provider paged *Pending Lab/Results: No Pending Lab - Referrals/Follow Up *Referrals/Follow Up: Reema Harrison APRN [Advanced Practice Nurse] - (Please schedule to see Reema Harrison this Monday. needs B12, folate and repeat CBC at her visit. APPOINTMENT 04/14 AT 9AM.) - Patient Handouts Patient Handouts: Pancreatitis (GEN) - Dismissal Complete Discharge Instructions are:: Incomplete Physician Narrative - Narrative Physician: Carlito Sutton MD Attestation Narrative: Date: 04/11/17 Time: 1515 Patient says she is tired because it is difficult sleeping in the hospital. She says her pain is not as severe. She last had iv morphine at 2221 on 04/10. She is tolerating a diet. She says she feels ready to go home. NAD. RRR. CTAB. s/nt/nd +bs. trace edema. No focal deficit. Stable for dismissal to home. Acknowledges that she should abstain from alcohol. f/u is arranged for in a few days.
== END 2017-04-11 17:00 | disposition home or self-care (01) | DRG 439 ==
LOC: ED 13:32 → SUATTDRO 16:34 → MED 16:34
PROVIDERS: ADMIT Pediatrics; ATTEND Hospitalist